=== PATIENT | female | born 1990 | race Caucasian/White ===

== ENCOUNTER 2017-09-07 19:58 | Emergency (ER) | payer OTHER ==
--- NOTE | 2017-09-07 20:12 | EDPHY ---
HPI/HX/ROS/PE/MDM Narrative: CHIEF COMPLAINT: Diarrhea, abdominal cramping, nausea HISTORY OF PRESENT ILLNESS: The patient is a 26 y/o female with a history of Type 1 Diabetes complaining of diarrhea, abdominal cramping, and nausea onset 2 hours after eating abnormal food this morning. Her symptoms have worsened throughout the day and she became dizzy with tunnel vision which concerned her as she is diabetic. Several hours ago her blood glucose was 360, so she gave herself extra insulin. She does notice that when she visits [place] her blood sugar runs high. Denies history of DKA or abdominal surgeries. Denies using tobacco or illicit drug use. No fever, chills, chest pain, shortness of breath, palpitations, vomiting, urinary complaints, headache, lightheadedness. REVIEW OF SYSTEMS: Aside from elements discussed in the HPI, a comprehensive 10-point review of systems was reviewed and is negative. PAST MEDICAL HISTORY: Type 1 diabetes, hypothyroid SOCIAL HISTORY: at bedside, visiting from [facility] VITAL SIGNS: Reviewed by me GENERAL: Pleasant, well-developed, well-nourished, resting comfortably in no respiratory distress. HEENT: Atraumatic. Eyes: No icterus, no injection. Mouth: dry mucous membranes. No erythema or lesions. Neck: supple with no adenopathy. LUNGS: Clear to auscultation bilaterally, no wheezes, rhonchi or rales. CARDIAC: Mild tachycardia, no rubs, murmurs or gallops. ABDOMEN: Soft, nontender, nondistended, bowel sounds normal. BACK: No CVA tenderness. EXTREMITIES: No trauma. No edema. Range of motion is normal throughout. NEURO: Alert and oriented, grossly nonfocal. SKIN: Warm and dry, no rash. PSYCHIATRIC: Normal mentation, no agitation. Portions of this note were transcribed by a electromedical equipment technician. I personally performed a history, physical exam, medical decision making, and confirmed accuracy of information the transcribed note. ED Course: The patient is a 26 y/o female with a history of Type 1 Diabetic presenting with diarrhea, abdominal cramping, and nausea onset 2 hours after eating abnormal food this morning. On exam she has dry mucous membranes and is mildly tachycardic. At the time of my exam her BGL is 114. Labs ordered; 4mg IV Zofran and 1L IV NS administered. 2109: Reassessed patient and discussed laboratory findings; her symptoms are consistent with acute gastroenteritis. Patient had a loose bowel movement in the emergency department, stool stool sample was sent. This will be available tomorrow. Patient received fentanyl as well as Imodium. She was started on p.o. following fluid. I have advised her to take Zofran for nausea and Imodium if needed for recurrent episodes of diarrhea. Eat a bland diet. Return precautions provided; patient is comfortable with this plan. MDM: Differential diagnosis of the patient's nausea and vomiting was considered including but not limited to gastroenteritis, gastritis, alcohol intoxication, withdrawal symptoms, intraabdominal processes including appendicitis, pancreatitis, bowel obstruction and medication side effect. - Data Points Laboratory Results: Laboratory Results 09/07/17 20:15 09/07/17 20:15 09/07/17 09/07/17 09/07/17 21:10 20:15 20:15 WBC RBC Hgb Hct MCV MCH MCHC RDW Plt Count MPV Neut % (Auto) Lymph % (Auto) [place] % (Auto) Eos % (Auto) Baso % (Auto) Nucleat RBC Rel Count Absolute Neuts (auto) Absolute Lymphs (auto) Absolute Monos (auto) Absolute Eos (auto) Absolute Basos (auto) Absolute Nucleated RBC Immature Gran % Immature Gran # Sodium 141 mEq/L mEq/L (135-145) Potassium 3.7 mEq/L mEq/L (3.3-5.0) Chloride 106 mEq/L mEq/L (97-110) Carbon Dioxide 23 mEq/l mEq/l (22-31) Anion Gap 12 mEq/L mEq/L (8-16) BUN 12 mg/dL mg/dL (7-23) Creatinine 0.7 mg/dL mg/dL (0.6-1.0) Estimated GFR > 60 Glucose 108 mg/dL H mg/dL (70-100) POC Glucose Calcium 9.7 mg/dL mg/dL (8.5-10.4) Beta HCG, Qual NEGATIVE Urine Color PALE YELLOW Urine Appearance CLEAR Urine pH 7.0 (5.0-7.5) Ur Specific [place] 1.008 (1.002-1.030) Urine Protein NEGATIVE (NEGATIVE) Urine Ketones NEGATIVE (NEGATIVE) Urine Blood NEGATIVE (NEGATIVE) Urine Nitrate NEGATIVE (NEGATIVE) Urine Bilirubin NEGATIVE (NEGATIVE) Urine Urobilinogen NEGATIVE EU EU (0.2-1.0) Ur Leukocyte Esterase TRACE H (NEGATIVE) Urine RBC 1-3 /hpf /hpf (0-3) Urine WBC 1-3 /hpf /hpf (0-3) Ur Epithelial Cells TRACE /lpf /lpf (NONE-1+) Urine Glucose NEGATIVE (NEGATIVE) 09/07/17 09/07/17 20:15 20:11 WBC 10.95 10^3/uL H 10^3/uL (3.80-9.50) RBC 4.40 10^6/uL 10^6/uL (4.18-5.33) Hgb 13.9 g/dL g/dL (12.6-16.3) Hct 39.3 % % (38.0-47.0) MCV 89.3 fL fL (81.5-99.8) MCH 31.6 pg pg (27.9-34.1) MCHC 35.4 g/dL g/dL (32.4-36.7) RDW 11.4 % L % (11.5-15.2) Plt Count 305 10^3/uL 10^3/uL (150-400) MPV 11.2 fL fL (8.7-11.7) Neut % (Auto) 73.3 % % (39.3-74.2) Lymph % (Auto) 16.8 % % (15.0-45.0) [place] % (Auto) 7.9 % % (4.5-13.0) Eos % (Auto) 1.4 % % (0.6-7.6) Baso % (Auto) 0.2 % L % (0.3-1.7) Nucleat RBC Rel Count 0.0 % % (0.0-0.2) Absolute Neuts (auto) 8.04 10^3/uL H 10^3/uL (1.70-6.50) Absolute Lymphs (auto) 1.84 10^3/uL 10^3/uL (1.00-3.00) Absolute Monos (auto) 0.86 10^3/uL H 10^3/uL (0.30-0.80) Absolute Eos (auto) 0.15 10^3/uL 10^3/uL (0.03-0.40) Absolute Basos (auto) 0.02 10^3/uL 10^3/uL (0.02-0.10) Absolute Nucleated RBC 0.00 10^3/uL 10^3/uL (0-0.01) Immature Gran % 0.4 % % (0.0-1.1) Immature Gran # 0.04 10^3/uL 10^3/uL (0.00-0.10) Sodium Potassium Chloride Carbon Dioxide Anion Gap BUN Creatinine Estimated GFR Glucose POC Glucose 114 mg/dL H mg/dL (70-100) Calcium Beta HCG, Qual Urine Color Urine Appearance Urine pH Ur Specific [place] Urine Protein Urine Ketones Urine Blood Urine Nitrate Urine Bilirubin Urine Urobilinogen Ur Leukocyte Esterase Urine RBC Urine WBC Ur Epithelial Cells Urine Glucose Medications Given: Discontinued Medications Sodium Chloride (Ns) 1,000 mls @ 0 mls/hr IV ONCE ONE; Wide Open PRN Reason: Protocol Stop: 09/07/17 20:27 Last Admin: 09/07/17 20:34 Dose: 1,000 mls Ondansetron HCl (Zofran) 4 mg IVP EDNOW ONE Stop: 09/07/17 20:27 Last Admin: 09/07/17 20:35 Dose: 4 mg Point of Care Test Results: Chemistry 09/07/17 20:11 POC Glucose 114 mg/dL H mg/dL (70-100) General Time Seen by Provider: 09/07/17 20:04 Initial Vital Signs: Initial Vital Signs Temperature (C) 36.7 C 09/07/17 19:59 Heart Rate 118 H 09/07/17 19:59 Respiratory Rate 20 09/07/17 19:59 Blood Pressure 135/97 H 09/07/17 19:59 O2 Sat (%) 97 09/07/17 19:59 O2 Delivery Mode Room Air Allergies/Adverse Reactions: No Known Allergies Allergy (Unverified 09/07/17 19:59) Home Medications: Medication Instructions Recorded Humalog 09/07/17 Insulin Lispro 09/07/17 Ondansetron Odt [Zofran Odt 4 mg 4 mg PO Q6 PRN #8 tab 09/07/17 (RX)] Departure - Departure Disposition: Home, Routine, Self-Care Clinical Impression: Acute gastroenteritis Condition: Good Instructions: Gastroenteritis (ED) Additional Instructions: Take Zofran as prescribed. For your abdominal pain, I suggested you start with a bland diet and advance as tolerated. This means start with clear liquids such as water, Gatorade, juice, flat non- caffeinated soda. If you tolerate clear liquids, then you may add bland foods such as bananas, rice, or toast. If you do not have any worsening of your symptoms, you may begin to resume a regular diet. Return to the emergency department immediately for fever, vomiting, confusion, headache, abdominal pain or other worsening of condition. Referrals: [facility],. [Clinic] - As per Instructions Prescriptions: Ondansetron Odt [Zofran Odt 4 mg (RX)] 4 mg PO Q6 PRN #8 tab PRN Reason: Nausea Report Scribed for: Frida Parkinson Report Scribed by: Latasha Olea Date of Report: 09/07/17 Time of Report: 20:11
[2017-09-07] MEDS ORDERED: NS 1,000 ML IV ONE ×2 (20:26→21:36)
[2017-09-07] MEDS ORDERED: ONDANSETRON 4 MG/2 ML VIAL IVP ONE (20:26)
[2017-09-07 21:01] LABS: PLATELET COUNT 305 10^3/uL (150-400)
[2017-09-07] MEDS ORDERED: ONDANSETRON 4MG PREPACK#2 BTL TAKEHOME ONE (21:04)
[2017-09-07] MEDS ORDERED: fentaNYL 100 MCG/2 ML INJ IVP ONE (21:24)
[2017-09-07] MEDS ORDERED: LOPERAMIDE HCL 2 MG CAP PO ONE (21:25)
[2017-09-09 00:24] VITALS: BP 132/82
== END 2017-09-07 22:49 | disposition home or self-care (01) ==
DX: K52.9 Noninfective gastroenteritis and colitis, unspecified (principal); E86.9 Volume depletion, unspecified; E10.9 Type 1 diabetes mellitus without complications
CPT/HCPCS: 96374; J2405; J3010